=== PATIENT | male | born 1985 | race Caucasian/White ===

== ENCOUNTER 2021-10-14 14:20 | Emergency (ER) | payer OTHER ==
[~2021-10-14] VITALS: Ht 182.9 cm; Wt 82.6 kg
[2021-10-14] MEDS ORDERED: NORCO, ANEXSIA 5/325MG TABLET (HYDROcodone/ACETAMINOPHEN) PO ONE (16:30)
[2021-10-14] MEDS ORDERED: BACITRACIN OINTMENT 30GM TUBE TOP ONE (16:30)
[2021-10-14] MEDS ORDERED: HYDR-3713 PO (16:37)
[2021-10-14 16:42] VITALS: BP 137/75
== END 2021-10-14 16:53 | disposition home or self-care (01) ==
LOC: M ED 14:20
DX: T24.101A Burn of first degree of unspecified site of right lower limb, except ankle and foot, initial encounter (principal); T24.201A Burn of second degree of unspecified site of right lower limb, except ankle and foot, initial encounter; T23.162A Burn of first degree of back of left hand, initial encounter; T23.161A Burn of first degree of back of right hand, initial encounter; T23.261A Burn of second degree of back of right hand, initial encounter; X03.0XXA Exposure to flames in controlled fire, not in building or structure, initial encounter; Y92.017 Garden or yard in single-family (private) house as the place of occurrence of the external cause; Z88.2 Allergy status to sulfonamides